=== PATIENT | male | born 1935 | race Caucasian/White ===

== ENCOUNTER → 2018-04-20 12:33 | Outpatient (CLI) | payer MEDICARE, SELFPAY ==
[2018-04-20 13:17] VITALS: PULSE 101; PULSE 103; PULSE 107; PULSE 110; PULSE 80; PULSE 89; PULSE 90; PULSE 96; O2SAT 86; O2SAT 88; O2SAT 90; O2SAT 96; O2SAT 97
--- NOTE | 2018-04-20 13:21 | CPS ---
Patient came in for testing on RA. Patient was saying that he has been getting over the flu. Patient had a RA pulse ox of 88% on finger probe. RT placed and ear probe and patients pulse ox was 96% on ear probe. Patient was started on ear probe and at the 2 min jasvir patient's pulse ox was 88%. Patient declined O2 at this time. Patient continued walk. At the 3 min jasvir patient pulse ox dropped to 86%. Patient still refused O2. This RT talked to Sneha Arguelles [employer] she said that patient should continue walk incase he wants to have O2 later. He would be qualified. Patient started on 2L and continued test on 2L. Shalonda Art RRT-[facility]
--- NOTE | 2018-04-20 15:26 | WT_ITS ---
PSN 6 Minute Walk Test - 6 Minute Walk Test 6 Minute Walk Test: 6 Minute Walk Test PSN:6-Minute Walk Test Start: 04/20/18 13:17 Freq: Status: Active Protocol: RESP.6MINW Document 04/20/18 13:17 SARAH (Rec: 04/20/18 13:37 SARAH [id number]) 6 Minute Walk Test Date Performed 04/20/18 Time Performed 12:30 Height 5 ft 8 in Weight: 77.111 kg Weight in Pounds 170.[address]: Maryanne Arguelles Assistive device used: None Pre-test Oxygen Delivery Method Room Air Pulse Ox (%) 96 Pulse Rate (60-100 beats/min) 89 Dyspnea Douglas Scale (0-10) 0 Exertion Douglas Scale (6-20) 6 1st minute Oxygen Delivery Method Room Air Pulse Ox (%) 90 Pulse Rate (60-100 beats/min) 96 2nd minute Oxygen Delivery Method Room Air Pulse Ox (%) 88 Pulse Rate (60-100 beats/min) 110 H 3rd minute Oxygen Delivery Method Room Air Pulse Ox (%) 86 Pulse Rate (60-100 beats/min) 107 H Reported Symptoms Increased Work of Breathing 4th minute Oxygen Flow Rate (L/min) (L/min) 2 Oxygen Delivery Method Nasal Cannula Pulse Ox (%) 96 Pulse Rate (60-100 beats/min) 90 5th minute Oxygen Flow Rate (L/min) (L/min) 2 Oxygen Delivery Method Nasal Cannula Pulse Ox (%) 90 Pulse Rate (60-100 beats/min) 103 H 6th minute Oxygen Flow Rate (L/min) (L/min) 2 Oxygen Delivery Method Nasal Cannula Pulse Ox (%) 90 Pulse Rate (60-100 beats/min) 101 H Dyspnea Douglas Scale (0-10) 2 Exertion Douglas Scale (6-20) 11 Post-test Oxygen Flow Rate (L/min) (L/min) 2 Oxygen Delivery Method Nasal Cannula Pulse Ox (%) 97 Pulse Rate (60-100 beats/min) 80 Full Laps Walked 20 Partial Lap, Number of Tiles Walked 12 Total Distance Walked (ft) 1192 04/20/18 13:21 Cardiopulmonary Services by Shalonda Simeon Patient came in for testing on RA. Patient was saying that he has been getting over the flu. Patient had a RA pulse ox of 88% on finger probe. RT placed and ear probe and patients pulse ox was 96% on ear probe. Patient was started on ear probe and at the 2 min jasvir patient's pulse ox was 88%. Patient declined O2 at this time. Patient continued walk. At the 3 min jasvir patient pulse ox dropped to 86%. Patient still refused O2. This RT talked to Sneha Arguelles [employer] she said that patient should continue walk incase he wants to have O2 later. He would be qualified. Patient started on 2L and continued test on 2L. Shalonda Art RRT-[facility] Initialized on 04/20/18 13:21 - END OF NOTE - Interpretation Interpretation: The patient was noted to be 96% on room air. The patient then started ambulating and desaturated to 86% in the third minute. Patient was placed on 2 L nasal cannula with improvement in saturations. In total, patient traveled 1192 feet over the course of 6 minutes. These findings are consistent with a respiratory limitation exercise tolerance. - Recommendations Recommendations: Patient requires no supplemental oxygen at rest, but should be using 2 L nasal cannula with any exertion.
== END ==
PROVIDERS: Family Provider Family Medicine; PCP Family Medicine; Referring Provider Nurse Practitioner Acute Care; Visit Provider Nurse Practitioner Acute Care
DX: J84.10 Pulmonary fibrosis, unspecified (principal)
CPT/HCPCS: 94618

== ENCOUNTER → 2018-05-07 12:42 | Outpatient (CLI) | payer MEDICARE, SELFPAY ==
[2017-10-14 09:28] VITALS: BMI 25.5
--- NOTE | 2018-05-08 10:17 | PFTCOMP ---
COMPLETE PULMONARY FUNCTION TEST INTERPRETATION Brief HPI: Patient is an 82 year old male, currently under the care of myself, who presents to [facility] for complete pulmonary function tests secondary to diagnosis of pulmonary fibrosis. Respiratory therapist reports good effort and reproducible results. Interpretation: Forced expiration spirometry shows no large airways obstructive ventilatory defect with an FEV1 of 89% predicted. There is no significant bronchodilator response by strict ATS criteria. Spirograms are of good quality and plateau normally. The respiratory flow volume loop shows a normal pattern. Lung volumes by body plethysmography show a decreased total lung capacity at 3.9 L, 67% predicted. All other lung volumes are reduced symmetrically. Diffusion capacity by carbon monoxide is at the lower limit of normal at 55% predicted. The airway resistance is normal. Compared to previous pulmonary function tests from 03/17/17, there has been a significant reduction in FVC and DLCO. 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 There has been mild worsening compared to previous study.
--- NOTE | 2018-05-08 10:20 | PFTCOMP_ITS ---
COMPLETE PULMONARY FUNCTION TEST INTERPRETATION Brief HPI: Patient is an 82 year old male, currently under the care of myself, who presents to [facility] for complete pulmonary function tests secondary to diagnosis of pulmonary fibrosis. Respiratory therapist reports good effort and reproducible results. Interpretation: Forced expiration spirometry shows no large airways obstructive ventilatory defect with an FEV1 of 89% predicted. There is no significant bronchodilator re sponse by strict ATS criteria. Spirograms are of good quality and plateau normally. The respiratory flow volume loop shows a normal pattern. Lung volumes by body plethysmography show a decreased total lung capacity at 3.9 L, 67% predicted. All other lung volumes are reduced symmetrically. Diffusion capacity by carbon monoxide is at the lower limit of normal at 55% predicted. The airway resistance is normal. Compared to previous pulmonary function tests from 03/17/17, there has been a significant reduction in FVC and DLCO. 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 There has been mild worsening compared to previous study.
== END ==
PROVIDERS: Family Provider Family Medicine; PCP Family Medicine; Referring Provider Nurse Practitioner Acute Care; Visit Provider Nurse Practitioner Acute Care
DX: J84.10 Pulmonary fibrosis, unspecified (principal)
CPT/HCPCS: 94060; 94726; 94729